=== PATIENT | female | born 1990 | race Two or more races ===

== ENCOUNTER 2024-10-26 10:13 | Emergency (ER) | payer OTHER ==
[~2024-10-26] VITALS: Ht 177.8 cm; Wt 76.2 kg
[2024-10-26 10:36] VITALS: BP 111/77; O2SAT 100
[2024-10-26] MEDS ORDERED: FAMOTIDINE/PF 20 MG/2 ML VIAL ONE (11:12)
[2024-10-26] MEDS ORDERED: 0.9 % SODIUM CHLORIDE 1,000 ML IV ONE (11:15)
[2024-10-26] MEDS ORDERED: FAMOtidine 10 MG/ML (4ML VIAL) IV ONE (11:15)
[2024-10-26] MEDS ORDERED: CHOLESTYRAMINE/ASPARTAME LIGHT 4 G/PKT PACKET PO ONE (11:15)
[2024-10-26 11:24] LABS: BASO % 0.2 % (0.1-1.2); EOS # 0.04 (0.04-0.54); EOS % 0.9 % (0.7-7.0); HEMATOCRIT 38.1 % (34.1-44.9); HEMOGLOBIN 12.1 g/dL (11.2-15.7); LYMPH # 1.49 (1.18-3.74); LYMPH % 34.7 % (19.3-53.1); MEAN CORPUSCULAR HEMOGLOBIN 26.8 pg (25.6-32.2); MONO # 0.96 (0.24-0.82); NEUT # 1.78 (1.56-6.13); NEUT % 41.6 % (34.0-71.1); PLATELET COUNT 325 K/uL (163-369); RED BLOOD COUNT 4.52 M/uL (3.93-5.22); RED CELL DISTRIBUTION WIDTH 13.1 % (11.6-14.4)
[2024-10-26 11:26] LABS: MONO % 22.4 % (4.7-12.5)
[2024-10-26 11:45] LABS: INFLUENZA A AG NEGATIVE (NEGATIVE)
[2024-10-26 11:46] LABS: COVID-19 AG NEGATIVE (NEGATIVE)
[2024-10-26 11:51] LABS: ALBUMIN 3.8 gm/dL (3.4-5.0); BILIRUBIN TOTAL 0.42 mg/dL (0.3-1.2); CALCIUM 8.3 mg/dL (8.5-10.1); CREATININE SERUM 0.69 mg/dL (0.55-1.02); GFR 97.98; GLOBULINA 3.7 G/DL (2.4-3.5); POTASSIUM 3.71 mEq/L (3.5-5.1); TOTAL PROTEIN 7.5 gm/dL (6.4-8.2)
[2024-10-26 13:00] LABS: PH,URINE 6.5 (5.0-8.0); URINE APPEARANCE Clear; URINE BILIRRUBIN Negative (NEGATIVE); URINE BLOOD Negative; URINE COLOR Yellow; URINE GLUCOSE Negative (NEGATIVE); URINE LEUKOCYTE Negative; URINE NITRATE Negative; URINE PROTEIN Negative (NEGATIVE)
[2024-10-26 13:03] LABS: URINE BACTERIA 540.9 uL (0.0-1933); URINE EPITHELIAL CELLS 23.4 uL (0.0-38.8); URINE WBC 8.8 uL (0.0-23.2)
[2024-10-26 13:16] LABS: URINE KETONE 40 (NEGATIVE); URINE RBC 1.4 uL (0.0-20.8)
[2024-10-26] MEDS ORDERED: PROBIOTIC1 EAC2 PO (13:33)
[2024-10-26] MEDS ORDERED: ZOFRAN8 MG PO (13:33)
[2024-10-26] MEDS ORDERED: PEPCID AC20 MG PO (13:33)
== END 2024-10-26 13:46 | disposition home or self-care (01) ==
LOC: ER 13:00
PROVIDERS: General Practice
DX: R19.7 Diarrhea, unspecified (principal); Z20.822 Contact with and (suspected) exposure to COVID-19